=== PATIENT | male | born 1960 | race Caucasian/White ===

== ENCOUNTER 2022-01-04 10:10 | Outpatient (RCR) | payer BC, SELFPAY ==
--- NOTE | 2022-01-04 11:00 | PTOPEVAL ---
Thank you for referring Nuno Lomeli to [facility].? The patient is scheduled to be seen for therapy? __2__x/week for 8 visits. Please review, sign, date and return this plan of care CAMELIA. I agree with and certify that the following plan of care is medically necessary. Referring Physician Date Admitting Provider: Attending Provider: MAXIMILIANO BEARDEN Referring Provider: *PT Outpatient Evaluation Start: 01/04/22 10:15 Freq: Status: Active Protocol: Document 01/04/22 10:15 JUAN (Rec: 01/04/22 11:00 JUAN [email or web address]) Therapy Assessment Status Assessment Status Assessment Status Evaluation Evaluation Information Problem Diagnosis back pain Onset 10/29/21 Subjective Information Pt. reports that he has had Query Text:As Reported By Patient/ increasing low back pain for Family years. He reports that it has worsened over the recent months. He will get pain and numbness into the legs and his pain can vary. 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 He reports that sitting and standing will both increase his low back pain. He reports that his goal for therapy is to decrease his back pain. Previous Treatments Previous Treatments For This Problem cortisone injections in the back Pain Assessment Timing of Pain Assessment Timing of Pain Assessment Pre-Treatment Pain Scale Pain Scale Used Numeric (1 - 10) Self Report Pain Assessment Lower Back Reported Pain Level 2 Pain Description Aching Lowest Pain Intensity 2 Greatest Pain Intensity 8 Pain Aggravating Factors Changing Position,Exercise/ Activity,Lifting,Prolonged Position,Sitting,Supine, Walking,Weight Bearing/ Standing Pain Score Pain Score 2: Self Report Interventions Used Interventions Used By Clinicians Exercise Cervical and Lumbar ROM Lumbar ROM Lumbar Flexion Active Ankle Query Text:Hands to: Lumbar Extension (0-40) 10 Query Text:Active in Degrees Lumbar Lateral Flexion Right (0-40) 10 Query Text:Active in Degrees Lumbar Lateral Flexion Left (0-40) 10 Query Text:Active in Degrees Lateral Rotation Right (0-45) 10
== END 2022-02-02 15:00 | disposition home or self-care (01) ==
LOC: CHSPT 10:10
DX: M54.50 Low back pain, unspecified (principal); G89.29 Other chronic pain; M47.816 Spondylosis without myelopathy or radiculopathy, lumbar region; M51.36 Other intervertebral disc degeneration, lumbar region; M43.16 Spondylolisthesis, lumbar region
CPT/HCPCS: 97014; 97110; 97112; 97161; G0283

== ENCOUNTER 2022-03-27 10:05 | Outpatient (CLI) | payer BC, SELFPAY ==
--- NOTE | ~2022-03-27 | MR_ITS ---
EXAMINATION: MR lumbar spine wo con DATE: 03/27/2022 10:48 INDICATION: Anterolisthesis of lumbar spine. TECHNIQUE: Magnetic resonance imaging (MRI) of the lumbar spine was performed without intravenous con trast. Sequences included sagittal T2-weighted FSE, sagittal T2-weighted FS FSE, sagittal T1-weighted FSE, and axial T2-weighted FSE. COMPARISON: None FINDINGS: There are cysts in the kidneys measuring up to 16 mm on the left. There are Schmorl's nodes at multiple levels. There is mild chronic anterior wedging of T12 and L1 vertebral bodies. There is 3 mm anterolisthesis of L3 on L4. There is mildly decreased disc height at L3-L4 and L4-L5 and severe ly decreased disc height at L5-S1. The distal spinal cord signal intensity is normal. The conus medul ale is at L1. The following disc levels are specifically discussed: L1-L2: The disc is bulging. There is mild bilateral facet joint osteoarthritis. There is no neural fo raminal stenosis. There is mild central canal stenosis. L2-L3: The disc is bulging and has an annular fissure. There is moderate bilateral facet joint osteoa rthritis. There is hypertrophy of the ligamentum flavum. There is mild bilateral neural foraminal theresa nosis. There is mild central canal stenosis. L3-L4: The disc is bulging and has an annular fissure. There is severe bilateral facet joint osteoart hritis. There is hypertrophy of the ligamentum flavum. There is moderate bilateral neural foraminal stenosis. There is moderate central canal stenosis. L4-L5: The disc is bulging and has an annular fissure. There is mild right and moderate left facet lindsey int osteoarthritis. There is moderate bilateral neural foraminal stenosis. There is mild central amy l stenosis. L5-S1: The disc is bulging and has an annular fissure. There is mild bilateral facet joint osteoarthr itis. There is mild bilateral neural foraminal stenosis. There is mild central canal stenosis. IMPRESSION: 1. Severe lumbar spondylosis. Reviewed, dictated and finalized at location A.
== END 2022-03-27 10:06 | disposition home or self-care (01) ==
LOC: CHSIMG 10:07
PROVIDERS: PCP Physician Assistant
DX: M54.50 Low back pain, unspecified (principal); G89.29 Other chronic pain; M47.816 Spondylosis without myelopathy or radiculopathy, lumbar region; M51.36 Other intervertebral disc degeneration, lumbar region; M43.16 Spondylolisthesis, lumbar region
CPT/HCPCS: 72148

== ENCOUNTER 2022-07-28 16:37 | Outpatient (CLI) | payer BC, SELFPAY ==
--- NOTE | ~2022-07-28 | CT_ITS ---
EXAMINATION: CT lung screening DATE: 07/28/2022 17:00 INDICATION: Personal history nicotine dependence, current smoker with 45 pack year history TECHNIQUE: Computed tomography (CT) of the chest was performed without intravenous contrast. The dose -length product (DLP) was 129.30 mGy-cm. Automated exposure control and iterative reconstruction tech [employer] were employed. COMPARISON: None FINDINGS: There is mild emphysema. No suspicious pulmonary nodules are identified. The lungs are free of acute opacities. No pleural effusion or pneumothorax. A calcified nodule of the left lower lobe i s consistent with old granulomatous disease. There is mild bilateral gynecomastia. Calcified coronary artery atherosclerosis is noted. Cysts of the liver measure up to 3.6 cm in the right hepatic lobe. There is moderate thoracic spondylosis. IMPRESSION: 1. Lung-RADS category 1: Negative. Continue annual screening with noncontrast low-dose chest CT in 12 months. Reviewed, dictated and finalized at location A. [employer] IMPRESSION: 1. Lung-RADS category 1: Negative. Continue annual screening with noncontrast l ow-dose chest CT in 12 months.
== END 2022-07-28 16:38 | disposition home or self-care (01) ==
LOC: CHSIMG 16:38
PROVIDERS: PCP Nurse Practitioner; Visit Provider Nurse Practitioner
DX: Z12.2 Encounter for screening for malignant neoplasm of respiratory organs (principal); Z87.891 Personal history of nicotine dependence
CPT/HCPCS: 71271